=== PATIENT | male | born 1970 | race Two or more races ===

== ENCOUNTER 2021-09-20 10:15 | Outpatient (CLI) | payer MEDICARE | END 2021-09-20 23:59 | disposition home or self-care (01) | LOC: MSC 10:15 | PROVIDERS: ATTEND Internal Medicine | DX: Z51.89 Encounter for other specified aftercare (principal); G12.21 Amyotrophic lateral sclerosis; E03.9 Hypothyroidism, unspecified; Z79.890 Hormone replacement therapy; R53.2 Functional quadriplegia; Z99.3 Dependence on wheelchair; L03.039 Cellulitis of unspecified toe; M54.2 Cervicalgia; Z87.01 Personal history of pneumonia (recurrent); Z79.899 Other long term (current) drug therapy ==

== ENCOUNTER 2022-05-16 09:30 | Outpatient (CLI) | payer MEDICARE | END 2022-05-16 23:59 | disposition home or self-care (01) | LOC: MSC 09:30 | PROVIDERS: ATTEND Internal Medicine | DX: R14.0 Abdominal distension (gaseous) (principal); G12.21 Amyotrophic lateral sclerosis; E03.9 Hypothyroidism, unspecified; Z79.890 Hormone replacement therapy; R53.2 Functional quadriplegia; L03.039 Cellulitis of unspecified toe; M54.2 Cervicalgia; Z87.01 Personal history of pneumonia (recurrent) ==